=== PATIENT | male | born 1965 | race Hispanic/Latino ===

== ENCOUNTER 2017-07-02 00:58 | Emergency (ER) | payer SELFPAY ==
[~2017-07-02] VITALS: Ht 165.1 cm; Wt 68.0 kg
[2017-07-02 01:52] VITALS: BP 111/73
== END 2017-07-02 01:53 | DRG 605 ==
LOC: ED 00:58
DX: S00.81XA Abrasion of other part of head, initial encounter (principal); Y04.0XXA Assault by unarmed brawl or fight, initial encounter; Y92.410 Unspecified street and highway as the place of occurrence of the external cause